=== PATIENT | female | born 1980 | race Caucasian/White ===

== ENCOUNTER 2018-05-04 23:56 | Observation (INO) | payer MEDICAID ==
[2018-05-05] MEDS ORDERED: Ondansetron 4 MG/2 ML SDV IVPUSH ONE (00:17)
--- NOTE | 2018-05-05 00:20 | EDM.PDOC ---
ED HPI GENERAL MEDICAL PROBLEM - General Chief Complaint: Diabetic Complaint Stated Complaint: LOW BLOOD SUGAR Time Seen by Provider: 05/05/18 00:17 Source of Information: Reports: Patient History Limitations: Reports: No Limitations - History of Present Illness INITIAL COMMENTS - FREE TEXT/NARRATIVE: pt has shaking chills and she thought she was having a insulin reaction Onset: Today, Sudden, Other (pt worked all day and felt fine. She came home and was lying on the couch about 10 pm and developed the chills. She was nauseated and has vomited several times. She developed shaking chills. ) Duration: Hour(s):, Getting Worse Associated Symptoms: Reports: Diaphoresis, Fever/Chills, Nausea/Vomiting Generalized Pain Score (Numeric/FACES): 5 - Related Data Allergies Allergy/AdvReac Type Severity Reaction Status Date / Time amoxicillin Allergy Anaphylactic Verified 05/05/18 00:14 Shock ampicillin Allergy Anaphylactic Verified 05/05/18 00:14 Shock Penicillins Allergy Anaphylactic Verified 05/05/18 00:14 Shock Home Meds: Home Meds Levonorgestrel-Ethin Estradiol [Altavera-28 Tablet] 1 tab PO DAILY 05/05/18 [ History] metFORMIN [Glucophage] 1,000 mg PO BID 05/05/18 [History] ED ROS GENERAL - Review of Systems Review Of Systems: See Below Constitutional: Reports: Fever, Chills, Malaise HEENT: Reports: No Symptoms Respiratory: Reports: No Symptoms Cardiovascular: Reports: No Symptoms Endocrine: Reports: No Symptoms GI/Abdominal: Reports: Nausea, Vomiting Musculoskeletal: Reports: No Symptoms Skin: Reports: No Symptoms Neurological: Reports: No Symptoms Psychiatric: Reports: No Symptoms ED EXAM GENERAL NO PERIP PULSE - Physical Exam Exam: See Below Text/Narrative:: pt developed a sudden onset of shaking chills. At first she thought she was having a low bs. She had just taken her metformin, Exam Limited By: No Limitations General Appearance: Alert Ears: Normal TMs Nose: Normal Inspection Throat/Mouth: Normal Inspection Head: Atraumatic Neck: Normal Inspection Respiratory/Chest: No Respiratory Distress Cardiovascular: Regular Rate, Rhythm GI/Abdominal: Soft, Non-Tender (Female) Exam: Deferred Rectal (Female) Exam: Deferred Back Exam: Normal Inspection Extremities: Normal Inspection Neurological: Alert, Oriented, Normal Cognition Psychiatric: Normal Affect, Anxious Course - Vital Signs Last Recorded V/S: Last Vital Signs Temp 38.7 C H 05/05/18 01:51 Pulse 105 H 05/05/18 01:07 Resp 20 05/05/18 01:07 BP 118/59 L 05/05/18 00:45 Pulse Ox 98 05/05/18 01:07 - Orders/Labs/Meds Orders: Active Orders 24 hr Category Date Time Status Chest 2V [CR] Stat Exams 05/05/18 00:48 Taken BABESIA MICROTI ANTIBODY PANEL Stat Lab 05/05/18 01:51 Received CULTURE BLOOD [BC] Urgent Lab 05/05/18 00:10 Received CULTURE BLOOD [BC] Urgent Lab 05/05/18 00:19 Received HUMAN GRANULOCYTIC LISA-HGE Stat Lab 05/05/18 01:51 Received LYME, TOTAL AB TEST/REFLEX Stat Lab 05/05/18 01:51 Received UA W/MICROSCOPIC [URIN] Urgent Lab 05/05/18 00:59 Ordered Doxycycline [Vibramycin] 100 mg Med 05/05/18 01:08 Active Sodium Chloride 0.9% [Normal Saline] 100 ml IV ONETIME Potassium Chloride [KCL 20 MEQ in Water 100 ML] 20 meq Med 05/05/18 01:03 Active Premix Bag 1 bag IV ONETIME Sodium Chloride 0.9% [Normal Saline] 1,000 ml Med 05/05/18 00:30 Active IV ASDIRECTED Sodium Chloride 0.9% [Normal Saline] 1,000 ml Med 05/05/18 01:00 Active IV ASDIRECTED Blood Culture x2 Reflex Set [OM.PC] Urgent Oth 05/05/18 00:06 Ordered Medication Orders Sodium Chloride (Normal Saline) 1,000 mls @ 999 mls/hr IV ASDIRECTED [facility] Last Admin: 05/05/18 00:25 Dose: 999 mls/hr Sodium Chloride (Normal Saline) 1,000 mls @ 999 mls/hr IV ASDIRECTED [facility] Last Admin: 05/05/18 01:50 Dose: 999 mls/hr Potassium Chloride 20 meq/ (Premix) 100 mls @ 50 mls/hr IV ONETIME ONE Stop: 05/05/18 03:02 Doxycycline Hyclate 100 mg/ (Sodium Chloride) 100 mls @ 100 mls/hr IV ONETIME ONE Stop: 05/05/18 02:07 Last Admin: 05/05/18 01:32 Dose: 100 mls/hr Labs: Laboratory Tests 05/05/18 05/05/18 05/05/18 Range/Units 00:03 00:03 00:03 WBC 3.1 L (4.5-11.0) K/uL RBC 4.97 (3.30-5.50) M/uL Hgb 13.2 (12.0-15.0) g/dL Hct 39.6 (36.0-48.0) % MCV 80 (80-98) fL MCH 27 (27-31) pg MCHC 33 (32-36) % Plt Count 233 (150-400) K/uL Neut % (Auto) 78 H (36-66) % Lymph % (Auto) 21 L (24-44) % [place] % (Auto) 1 L (2-6) % Eos % (Auto) 0 L (2-4) % Baso % (Auto) 0 (0-1) % Sodium 140 (140-148) mmol/L Potassium 3.1 L (3.6-5.2) mmol/L Chloride 103 (100-108) mmol/L Carbon Dioxide 23 (21-32) mmol/L Anion Gap 17.1 H (5.0-14.0) mmol/L BUN 12 (7-18) mg/dL Creatinine 1.1 H (0.6-1.0) mg/dL Est Cr Clr Drug Dosing 63.01 mL/min Estimated GFR (MDRD) 56 L (>60) Glucose 119 H (74-106) mg/dL Lactic Acid 3.9 H (0.4-2.0) mmol/L Calcium 8.6 (8.5-10.1) mg/dL Total Bilirubin 0.4 (0.2-1.0) mg/dL AST 28 (15-37) U/L ALT 58 (12-78) U/L Alkaline Phosphatase 82 (46-116) U/L Total Protein 6.5 (6.4-8.2) g/dL Albumin 3.5 (3.4-5.0) g/dL Globulin 3.0 (2.3-3.5) g/dL Albumin/Globulin Ratio 1.2 (1.2-2.2) Urine Color Urine Appearance Urine pH (4.5-8.0) Ur Specific [place] (1.008-1.030) Urine Protein (NEGATIVE) mg/dL Urine Glucose (UA) (NEGATIVE) mg/dL Urine Ketones (NEGATIVE) mg/dL Urine Occult Blood (NEGATIVE) Urine Nitrite (NEGATIVE) Urine Bilirubin (NEGATIVE) Urine Urobilinogen (NORMAL) mg/dL Ur Leukocyte Esterase (NEGATIVE) Urine RBC (0-5) Urine WBC (0-5) Ur Epithelial Cells Amorphous Sediment Urine Bacteria Urine Mucus 05/05/18 Range/Units 00:59 WBC (4.5-11.0) K/uL RBC (3.30-5.50) M/uL Hgb (12.0-15.0) g/dL Hct (36.0-48.0) % MCV (80-98) fL MCH (27-31) pg MCHC (32-36) % Plt Count (150-400) K/uL Neut % (Auto) (36-66) % Lymph % (Auto) (24-44) % [place] % (Auto) (2-6) % Eos % (Auto) (2-4) % Baso % (Auto) (0-1) % Sodium (140-148) mmol/L Potassium (3.6-5.2) mmol/L Chloride (100-108) mmol/L Carbon Dioxide (21-32) mmol/L Anion Gap (5.0-14.0) mmol/L BUN (7-18) mg/dL Creatinine (0.6-1.0) mg/dL Est Cr Clr Drug Dosing mL/min Estimated GFR (MDRD) (>60) Glucose (74-106) mg/dL Lactic Acid (0.4-2.0) mmol/L Calcium (8.5-10.1) mg/dL Total Bilirubin (0.2-1.0) mg/dL AST (15-37) U/L ALT (12-78) U/L Alkaline Phosphatase (46-116) U/L Total Protein (6.4-8.2) g/dL Albumin (3.4-5.0) g/dL Globulin (2.3-3.5) g/dL Albumin/Globulin Ratio (1.2-2.2) Urine Color Yellow Urine Appearance Clear Urine pH 5.0 (4.5-8.0) Ur Specific [place] 1.010 (1.008-1.030) Urine Protein Negative (NEGATIVE) mg/dL Urine Glucose (UA) Normal (NEGATIVE) mg/dL Urine Ketones Negative (NEGATIVE) mg/dL Urine Occult Blood Moderate (NEGATIVE) Urine Nitrite Negative (NEGATIVE) Urine Bilirubin Negative (NEGATIVE) Urine Urobilinogen Normal (NORMAL) mg/dL Ur Leukocyte Esterase Negative (NEGATIVE) Urine RBC 0-5 (0-5) Urine WBC Not seen (0-5) Ur Epithelial Cells Not seen Amorphous Sediment Not seen Urine Bacteria Not seen Urine Mucus Not seen Meds: Medications Generic Name Dose Route Start Last Admin Trade Name Freq PRN Reason Stop Dose Admin Sodium Chloride 1,000 mls @ 999 mls/hr 05/05/18 00:30 05/05/18 00:25 Normal Saline IV 999 mls/hr ASDIRECTED SUMANTH Administration Sodium Chloride 1,000 mls @ 999 mls/hr 05/05/18 01:00 05/05/18 01:50 Normal Saline IV 999 mls/hr ASDIRECTED SUMANTH Administration Potassium Chloride 20 meq/ 100 mls @ 50 mls/hr 05/05/18 01:03 Premix IV 05/05/18 03:02 ONETIME ONE Doxycycline Hyclate 100 mg/ 100 mls @ 100 mls/hr 05/05/18 01:08 05/05/18 01: 32 Sodium Chloride IV 05/05/18 02:07 100 mls/hr ONETIME ONE Administration Discontinued Medications Generic Name Dose Route Start Last Admin Trade Name Freq PRN Reason Stop Dose Admin Acetaminophen 650 mg 05/05/18 00:44 05/05/18 01:14 Tylenol RECTAL 05/05/18 00:45 Not Given NOW ONE Acetaminophen 650 mg 05/05/18 01:56 Tylenol PO 05/05/18 01:57 NOW ONE Ondansetron HCl 4 mg 05/05/18 00:17 05/05/18 00:25 Zofran IVPUSH 05/05/18 00:18 4 mg ONETIME ONE Administration - Re-Assessments/Exams Free Text/Narrative Re-Assessment/Exam: 05/05/18 01:06 pt has a wbc of 3,100. Her platlets are normal. She has a elevated lactic acid. She has a k of 3.1. Her bs is 119. 05/05/18 01:59 pt was given 100mg of doxycline iv, Departure - Departure Time of Disposition: 02:00 Disposition: Home, Self-Care 01 Condition: Fair Clinical Impression: Anaplasmosis - Discharge Information Referrals: PCP,None [Primary Care Provider] - Forms: ED Department Discharge Care Plan Goals: admit to Dr Dennis. - My Orders Last 24 Hours: My Active Orders 05/05/18 00:06 Blood Culture x2 Reflex Set [OM.PC] Urgent 05/05/18 00:10 CULTURE BLOOD [BC] Urgent 05/05/18 00:19 CULTURE BLOOD [BC] Urgent 05/05/18 00:30 Sodium Chloride 0.9% [Normal Saline] 1,000 ml IV ASDIRECTED 05/05/18 00:48 Chest 2V [CR] Stat 05/05/18 00:59 UA W/MICROSCOPIC [URIN] Urgent 05/05/18 01:00 Sodium Chloride 0.9% [Normal Saline] 1,000 ml IV ASDIRECTED 05/05/18 01:03 Potassium Chloride [KCL 20 MEQ in Water 100 ML] 20 meq Premix Bag 1 bag IV ONETIME 05/05/18 01:08 Doxycycline [Vibramycin] 100 mg Sodium Chloride 0.9% [Normal Saline] 100 ml IV ONETIME 05/05/18 01:51 BABESIA MICROTI ANTIBODY PANEL Stat HUMAN GRANULOCYTIC LISA-HGE Stat LYME, TOTAL AB TEST/REFLEX Stat - Assessment/Plan Last 24 Hours: My Active Orders 05/05/18 00:06 Blood Culture x2 Reflex Set [OM.PC] Urgent 05/05/18 00:10 CULTURE BLOOD [BC] Urgent 05/05/18 00:19 CULTURE BLOOD [BC] Urgent 05/05/18 00:30 Sodium Chloride 0.9% [Normal Saline] 1,000 ml IV ASDIRECTED 05/05/18 00:48 Chest 2V [CR] Stat 05/05/18 00:59 UA W/MICROSCOPIC [URIN] Urgent 05/05/18 01:00 Sodium Chloride 0.9% [Normal Saline] 1,000 ml IV ASDIRECTED 05/05/18 01:03 Potassium Chloride [KCL 20 MEQ in Water 100 ML] 20 meq Premix Bag 1 bag IV ONETIME 05/05/18 01:08 Doxycycline [Vibramycin] 100 mg Sodium Chloride 0.9% [Normal Saline] 100 ml IV ONETIME 05/05/18 01:51 BABESIA MICROTI ANTIBODY PANEL Stat HUMAN GRANULOCYTIC LISA-HGE Stat LYME, TOTAL AB TEST/REFLEX Stat
[2018-05-05] MEDS ORDERED: Sodium Chloride 0.9% 1,000 ML IV SCH ×2 (00:30→01:00)
[2018-05-05] MEDS ORDERED: Potassium Chloride 20 MEQ in Premix Bag 1 BAG IV ONE (01:03)
[2018-05-05] MEDS ORDERED: Doxycycline 100 MG in Sodium Chloride 0.9% 100 ML IV ONE (01:08)
[2018-05-05] MEDS: Acetaminophen 650 MG Supp RECTAL ONE ×2 (01:12→01:14)
[2018-05-05] MEDS ORDERED: Acetaminophen 325 MG Tab PO ONE (01:56)
--- NOTE | 2018-05-05 02:18 | PCM.HP ---
H&P History of Present Illness - General Date of Service: 05/05/18 Admit Problem/Dx: Admission Diagnosis/Problem Admission Diagnosis/Problem Human anaplasmosis Source of Information: Patient, Provider History Limitations: Reports: No Limitations - History of Present Illness Initial Comments - Free Text/Narative: Piper presents to the emergency room with shaking chills, mild hypoglycemia and vomiting. She reports that she felt perfectly fine all day today. Around 10 PM she sat down on the couch to relax after work and suddenly had shaking chills. Despite multiple blankets she was not able to calm the shaking chills down. She has had 3 episodes of vomiting since onset of the shaking chills. She felt flushed and warm along the way but did not measure any temperatures at home. She does not report muscle or joint aches outside of the ordinary. Appetite had been normal up until onset of symptoms. She does not have abdominal pain at this time. No diarrhea. She does report that she was camping several days ago but did not notice any tick bites at the time. No one else in the home has similar symptoms. Workup in the emergency room has revealed mild hypokalemia and mild leukopenia. She is febrile and mildly tachycardic. Lactic acid is elevated. Urine and chest x-rays are clear. Patient has received a dose of doxycycline and will be admitted for observation with presumed diagnosis of anaplasmosis. 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 - Infectious Disease History Infectious Disease History: Reports: Chicken Pox, Measles, Mumps - Past Surgical History Dermatological Surgical History: Reports: Other (See Below) Social & Family History - Family History Family Medical History: Noncontributory - Tobacco Use Smoking Status *Q: Never Smoker Second Hand Smoke Exposure: No - Caffeine Use Caffeine Use: Reports: Tea - Alcohol Use Days Per Week of Alcohol Use: 0 - Recreational Drug Use Recreational Drug Use: No H&P Review of Systems - Review of Systems: Review Of Systems: See Below Free Text/Narrative: A complete 12 point review of systems was obtained. Pertinent positives and negatives are noted in the history of present illness. All other systems were reviewed and were negative except as noted. Exam - Exam Exam: See Below - Vital Signs Vital Signs: Last Vital Signs Temp 38.7 C H 05/05/18 02:13 Pulse 105 H 05/05/18 01:07 Resp 20 05/05/18 01:07 BP 118/59 L 05/05/18 00:45 Pulse Ox 98 05/05/18 01:07 Weight: 117.934 kg - Exam Quality Assessment: No: Supplemental Oxygen General: Alert, Oriented, Cooperative, Mild Distress HEENT: Conjunctiva Clear, Mucosa Moist & [place]. No: Scleral Icterus Neck: Supple, Trachea Midline. No: Lymphadenopathy, Thyromegaly Lungs: Clear to Auscultation, Normal Respiratory Effort Cardiovascular: Regular Rhythm, Tachycardia GI/Abdominal Exam: Normal Bowel Sounds, Soft, Non-Tender, No Distention Extremities: No Pedal Edema. No: Increased Warmth Peripheral Pulses: 2+: Dorsalis Pedis (L), Dorsalis Pedis (R) Skin: Warm, Dry, Other (flushed) Neuro Extensive - Mental Status: Alert, Oriented x3, Nl Response to Commands Neuro Extensive - Motor, Sensory, Reflexes: CN II-XII Intact. No: Dysarthria, Abnormal Motor, Tremor Psychiatric: Alert, Normal Affect - Patient Data Lab Results Last 24 hrs: Laboratory Results - last 24 hr 05/05/18 05/05/18 05/05/18 Range/Units 00:03 00:03 00:03 WBC 3.1 L (4.5-11.0) K/uL RBC 4.97 (3.30-5.50) M/uL Hgb 13.2 (12.0-15.0) g/dL Hct 39.6 (36.0-48.0) % MCV 80 (80-98) fL MCH 27 (27-31) pg MCHC 33 (32-36) % Plt Count 233 (150-400) K/uL Neut % (Auto) 78 H (36-66) % Lymph % (Auto) 21 L (24-44) % [place] % (Auto) 1 L (2-6) % Eos % (Auto) 0 L (2-4) % Baso % (Auto) 0 (0-1) % Sodium 140 (140-148) mmol/L Potassium 3.1 L (3.6-5.2) mmol/L Chloride 103 (100-108) mmol/L Carbon Dioxide 23 (21-32) mmol/L Anion Gap 17.1 H (5.0-14.0) mmol/L BUN 12 (7-18) mg/dL Creatinine 1.1 H (0.6-1.0) mg/dL Est Cr Clr Drug Dosing 63.01 mL/min Estimated GFR (MDRD) 56 L (>60) Glucose 119 H (74-106) mg/dL Lactic Acid 3.9 H (0.4-2.0) mmol/L Calcium 8.6 (8.5-10.1) mg/dL Total Bilirubin 0.4 (0.2-1.0) mg/dL AST 28 (15-37) U/L ALT 58 (12-78) U/L Alkaline Phosphatase 82 (46-116) U/L Total Protein 6.5 (6.4-8.2) g/dL Albumin 3.5 (3.4-5.0) g/dL Globulin 3.0 (2.3-3.5) g/dL Albumin/Globulin Ratio 1.2 (1.2-2.2) Urine Color Urine Appearance Urine pH (4.5-8.0) Ur Specific [place] (1.008-1.030) Urine Protein (NEGATIVE) mg/dL Urine Glucose (UA) (NEGATIVE) mg/dL Urine Ketones (NEGATIVE) mg/dL Urine Occult Blood (NEGATIVE) Urine Nitrite (NEGATIVE) Urine Bilirubin (NEGATIVE) Urine Urobilinogen (NORMAL) mg/dL Ur Leukocyte Esterase (NEGATIVE) Urine RBC (0-5) Urine WBC (0-5) Ur Epithelial Cells Amorphous Sediment Urine Bacteria Urine Mucus 08/19/18 Range/Units 00:59 WBC (4.5-11.0) K/uL RBC (3.30-5.50) M/uL Hgb (12.0-15.0) g/dL Hct (36.0-48.0) % MCV (80-98) fL MCH (27-31) pg MCHC (32-36) % Plt Count (150-400) K/uL Neut % (Auto) (36-66) % Lymph % (Auto) (24-44) % [place] % (Auto) (2-6) % Eos % (Auto) (2-4) % Baso % (Auto) (0-1) % Sodium (140-148) mmol/L Potassium (3.6-5.2) mmol/L Chloride (100-108) mmol/L Carbon Dioxide (21-32) mmol/L Anion Gap (5.0-14.0) mmol/L BUN (7-18) mg/dL Creatinine (0.6-1.0) mg/dL Est Cr Clr Drug Dosing mL/min Estimated GFR (MDRD) (>60) Glucose (74-106) mg/dL Lactic Acid (0.4-2.0) mmol/L Calcium (8.5-10.1) mg/dL Total Bilirubin (0.2-1.0) mg/dL AST (15-37) U/L ALT (12-78) U/L Alkaline Phosphatase (46-116) U/L Total Protein (6.4-8.2) g/dL Albumin (3.4-5.0) g/dL Globulin (2.3-3.5) g/dL Albumin/Globulin Ratio (1.2-2.2) Urine Color Yellow Urine Appearance Clear Urine pH 5.0 (4.5-8.0) Ur Specific [place] 1.010 (1.008-1.030) Urine Protein Negative (NEGATIVE) mg/dL Urine Glucose (UA) Normal (NEGATIVE) mg/dL Urine Ketones Negative (NEGATIVE) mg/dL Urine Occult Blood Moderate (NEGATIVE) Urine Nitrite Negative (NEGATIVE) Urine Bilirubin Negative (NEGATIVE) Urine Urobilinogen Normal (NORMAL) mg/dL Ur Leukocyte Esterase Negative (NEGATIVE) Urine RBC 0-5 (0-5) Urine WBC Not seen (0-5) Ur Epithelial Cells Not seen Amorphous Sediment Not seen Urine Bacteria Not seen Urine Mucus Not seen Result Diagrams: 05/05/18 00:03 05/05/18 00:03 Imaging Impressions Last 24 hrs: CXR - images personally reviewed - lungs are clear with no mass, effusion, infiltrate or chf. Heart size is normal. *Q Meaningful Use (ADM) - VTE Risk Assess *Q Each Risk Factor Represents 1 Point: Obesity ( BMI > 25 kg/m2) Total Score 1 Point Risk Factors: 1 Each Risk Factor Represents 2 Points: None Total Score 2 Point Risk Factors: 0 Each Risk Factor Represents 3 Points: None Total Score 3 Point Risk Factors: 0 Each Risk Factor Represents 5 Points: None Total Score 5 Point Risk Factors: 0 Venous Thromboembolism Risk Factor Score *Q: 1 - Problem List (1) Anaplasmosis SNOMED Code(s): 295327450 ICD Code: A77.49 - OTHER EHRLICHIOSIS Status: Acute Current Visit: Yes (2) Type II diabetes mellitus SNOMED Code(s): 02069667 ICD Code: E11.9 - TYPE 2 DIABETES MELLITUS WITHOUT COMPLICATIONS Status: Chronic Current Visit: Yes Qualifiers: Diabetes mellitus jail insulin use: without termite helper use Diabetes mellitus complication status: without complication Qualified Code(s): E11.9 - Type 2 diabetes mellitus without complications Problem List Initiated/Reviewed/Updated: Yes Orders Last 24hrs: Active Orders 24 hr Category Date Time Status Patient Status Manage Transfer [TRANSFER] Routine ADT 05/05/18 02:09 Active Chest 2V [CR] Stat Exams 05/05/18 00:48 Taken BABESIA MICROTI ANTIBODY PANEL Stat Lab 05/05/18 01:51 Received CULTURE BLOOD [BC] Urgent Lab 05/05/18 00:10 Received CULTURE BLOOD [BC] Urgent Lab 05/05/18 00:19 Received HUMAN GRANULOCYTIC LISA-HGE Stat Lab 05/05/18 01:51 Received LYME, TOTAL AB TEST/REFLEX Stat Lab 05/05/18 01:51 Received UA W/MICROSCOPIC [URIN] Urgent Lab 05/05/18 00:59 Ordered Potassium Chloride [KCL 20 MEQ in Water 100 ML] 20 meq Med 05/05/18 01:03 Active Premix Bag 1 bag IV ONETIME Sodium Chloride 0.9% [Normal Saline] 1,000 ml Med 05/05/18 00:30 Active IV ASDIRECTED Sodium Chloride 0.9% [Normal Saline] 1,000 ml Med 05/05/18 01:00 Active IV ASDIRECTED Blood Culture x2 Reflex Set [OM.PC] Urgent Oth 05/05/18 00:06 Ordered Resuscitation Status Routine Resus Stat 05/05/18 02:11 Ordered Medication Orders Sodium Chloride (Normal Saline) 1,000 mls @ 999 mls/hr IV ASDIRECTED [facility] Last Admin: 05/05/18 00:25 Dose: 999 mls/hr Sodium Chloride (Normal Saline) 1,000 mls @ 999 mls/hr IV ASDIRECTED [facility] Last Admin: 05/05/18 01:50 Dose: 999 mls/hr Potassium Chloride 20 meq/ (Premix) 100 mls @ 50 mls/hr IV ONETIME ONE Stop: 05/05/18 03:02 Assessment/Plan Comment:: ASSESSMENT AND PLAN - Anaplasmosis with sepsis - suspected source of infection as the tick bite with no other obvious source. Patient has potential for tick exposure and she does have leukopenia. Tick panel has been collected and will be sent to the reference lab. She has received a dose of doxycycline and some IV fluids and is feeling a little better. -Continue doxycycline -Additional IV fluids -Antipyretics -Repeat lactic acid level -Follow-up cultures Hypokalemia - Mild and will be supplemented at the time of admission. Plan to recheck in the morning. Diabetes mellitus type 2 - Recent diagnosis. She is on once daily metformin. -Continue metformin Maintenance issues - - DVT prophylaxis - patient will be ambulatory - GI prophylaxis - not indicated - Nutrition - regular diet - Evans catheter - not indicated CODE STATUS - Full code Admission justification - patient will be referred observation status for hydration, repeat lactic acid testing and additional treatment Disposition - I would anticipate discharge to home later today Primary care physician - Audrey Dennis M.D.
[2018-05-05] MEDS ORDERED: Ibuprofen 600 MG Tab PO PRN (02:51)
[2018-05-05] MEDS ORDERED: Acetaminophen 325 MG Tab PO PRN (02:51)
[2018-05-05] MEDS ORDERED: Ondansetron 4 MG/2 ML SDV IV PRN (02:51)
[2018-05-05] MEDS ORDERED: Ondansetron 4 MG Tab.DIS PO PRN (02:51)
[2018-05-05] MEDS ORDERED: Potassium Chloride 20 MEQ, Lidocaine 1% 2 ML in Sodium Chloride 0.9% 100 ML IV SCH (02:51)
[2018-05-05] MEDS: Sodium Chloride 0.9% 1,000 ML IV SCH ×2 (03:36→11:27)
[2018-05-05] MEDS ORDERED: LEVONORGESTREL PO SCH (09:00)
[2018-05-05] MEDS ORDERED: ETHINYL ESTRADIOL PO SCH (09:00)
[2018-05-05] MEDS ORDERED: LEVONORGESTREL ETHIN ESTRADIOL PO SCH (09:00)
[2018-05-05] MEDS ORDERED: Potassium Chloride 20 MEQ Tab.ER PO ONE (09:00)
[2018-05-05] MEDS ORDERED: metFORMIN 500 MG Tab PO SCH (09:00)
[2018-05-05] MEDS ORDERED: Doxycycline 100 MG in Sodium Chloride 0.9% 100 ML IV SCH (12:00)
--- NOTE | 2018-05-05 13:56 | PCM.DCSUM1 ---
Discharge Summary - Hospital Course Brief History: 38-year-old female with history of controlled type 2 diabetes mellitus who presented with shaking chills and was found to have fever and leukocytosis. 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 Diagnosis: Stroke: No - Discharge Data Discharge Date: 05/05/18 Discharge Disposition: Home, Self-Care 01 Condition: Good - Discharge Diagnosis/Problem(s) (1) Anaplasmosis SNOMED Code(s): 791007486 ICD Code: A77.49 - OTHER EHRLICHIOSIS Status: Acute Current Visit: Yes (2) Type II diabetes mellitus SNOMED Code(s): 23502178 ICD Code: E11.9 - TYPE 2 DIABETES MELLITUS WITHOUT COMPLICATIONS Status: Chronic Current Visit: Yes Qualifiers: Diabetes mellitus residential insulin use: without parts counterman use Diabetes mellitus complication status: without complication Qualified Code(s): E11.9 - Type 2 diabetes mellitus without complications - Patient Summary/Data Labs Pending at D/C: final results of blood cultures which are negative at the time of discharge Blood test looking for anaplasmosis, babesiosis and Lyme disease have been sent to the reference lab and are pending Hospital Course: Piper presented to the emergency room with shaking chills and mildly decreased blood sugar. Workup in the emergency room revealed leukopenia and a high fever as well as tachycardia and elevated lactic acid level. She was started on doxycycline with presumed diagnosis of anaplasmosis. She is admitted to the hospital for observation. With the administration of IV fluids her temperature and heart rate both improved. she has been afebrile since the time of her admission. Symptomatically she is feeling better with improved energy. She does have a mild residual headache but otherwise feels well. She has not had any additional vomiting since prior to admission. She has been tolerating food. She has received 2 doses of IV doxycycline that feels well enough for discharge home at this time. She will be on a total of 3 weeks of antibiotics. We did discuss potential side effects including increased skin sensitivity to the son as well as stomach upset. She will follow-up if symptoms do not continue to get better or if they get worse. - Patient Instructions Diet: Diabetic Diet Activity: As Tolerated Driving: May Drive Today Showering/Bathing: May Shower Notify Provider of: Fever, Increased Pain, Nausea and/or Vomiting Other/Special Instructions: 1. You were in the hospital for management of suspected anaplasmosis. Confirmatory blood testing has been sent to a reference lab and will not return for several days. I would recommend that you complete a total of 21 days of antibiotic therapy with doxycycline. Your next dose is due tonight and you should take the medication every 12 hours with food. Given the usual nature of this infection you may have mild temperature elevations over the next couple of days but they should be trending down and should resolve within 2-3 days. 2. Continue your usual home medications as previously prescribed. 3. Please seek medical attention if you develop fever greater than 101, you have severe muscle aches, severe headache or persistent vomiting or diarrhea. - Discharge Plan *PRESCRIPTION DRUG MONITORING PROGRAM REVIEWED*: Not Applicable *COPY OF PRESCRIPTION DRUG MONITORING REPORT IN PATIENT RAHUL: Not Applicable Prescriptions/Med Rec: Doxycycline Hyclate 100 mg PO BID #40 capsule Home Medications: Home Meds Doxycycline Hyclate 100 mg PO BID #40 capsule 05/05/18 [Rx] Levonorgestrel-Ethin Estradiol [Altavera-28 Tablet] 1 tab PO DAILY 05/05/18 [ History] metFORMIN [Glucophage] 1,000 mg PO BID 05/05/18 [History] Patient Handouts: Ehrlichiosis and Anaplasmosis, Doxycycline tablets or capsules Referrals: PCP,None [Primary Care Provider] - (follow-up if your symptoms do not continue to get better or if they get worse) - Discharge Summary/Plan Comment DC Time >30 min.: No - Patient Data Vitals - Most Recent: Last Vital Signs Temp 37.4 C 05/05/18 12:47 Pulse 91 05/05/18 12:47 Resp 16 05/05/18 12:47 BP 105/50 L 05/05/18 12:50 Pulse Ox 97 05/05/18 12:47 Weight - Most Recent: 120.111 kg I&O - Last 24 hours: Intake & Output 05/04/18 05/05/18 05/05/18 22:59 06:59 14:59 Intake Total 100 700 Output Total 850 Balance 100 -150 Lab Results - Last 24 hrs: Laboratory Results - last 24 hr 05/05/18 05/05/18 05/05/18 Range/Units 00:03 00:03 00:03 WBC 3.1 L (4.5-11.0) K/uL RBC 4.97 (3.30-5.50) M/uL Hgb 13.2 (12.0-15.0) g/dL Hct 39.6 (36.0-48.0) % MCV 80 (80-98) fL MCH 27 (27-31) pg MCHC 33 (32-36) % Plt Count 233 (150-400) K/uL Neut % (Auto) 78 H (36-66) % Lymph % (Auto) 21 L (24-44) % [place] % (Auto) 1 L (2-6) % Eos % (Auto) 0 L (2-4) % Baso % (Auto) 0 (0-1) % Sodium 140 (140-148) mmol/L Potassium 3.1 L (3.6-5.2) mmol/L Chloride 103 (100-108) mmol/L Carbon Dioxide 23 (21-32) mmol/L Anion Gap 17.1 H (5.0-14.0) mmol/L BUN 12 (7-18) mg/dL Creatinine 1.1 H (0.6-1.0) mg/dL Est Cr Clr Drug Dosing 63.01 mL/min Estimated GFR (MDRD) 56 L (>60) Glucose 119 H (74-106) mg/dL Lactic Acid 3.9 H (0.4-2.0) mmol/L Calcium 8.6 (8.5-10.1) mg/dL Total Bilirubin 0.4 (0.2-1.0) mg/dL AST 28 (15-37) U/L ALT 58 (12-78) U/L Alkaline Phosphatase 82 (46-116) U/L Total Protein 6.5 (6.4-8.2) g/dL Albumin 3.5 (3.4-5.0) g/dL Globulin 3.0 (2.3-3.5) g/dL Albumin/Globulin Ratio 1.2 (1.2-2.2) Urine Color Urine Appearance Urine pH (4.5-8.0) Ur Specific [place] (1.008-1.030) Urine Protein (NEGATIVE) mg/dL Urine Glucose (UA) (NEGATIVE) mg/dL Urine Ketones (NEGATIVE) mg/dL Urine Occult Blood (NEGATIVE) Urine Nitrite (NEGATIVE) Urine Bilirubin (NEGATIVE) Urine Urobilinogen (NORMAL) mg/dL Ur Leukocyte Esterase (NEGATIVE) Urine RBC (0-5) Urine WBC (0-5) Ur Epithelial Cells Amorphous Sediment Urine Bacteria Urine Mucus 05/05/18 05/05/18 05/05/18 Range/Units 00:59 06:03 07:49 WBC 17.1 H (4.5-11.0) K/uL RBC 4.50 (3.30-5.50) M/uL Hgb 11.9 L (12.0-15.0) g/dL Hct 35.9 L (36.0-48.0) % MCV 80 (80-98) fL MCH 26 L (27-31) pg MCHC 33 (32-36) % Plt Count 204 (150-400) K/uL Neut % (Auto) (36-66) % Lymph % (Auto) (24-44) % [place] % (Auto) (2-6) % Eos % (Auto) (2-4) % Baso % (Auto) (0-1) % Sodium (140-148) mmol/L Potassium (3.6-5.2) mmol/L Chloride (100-108) mmol/L Carbon Dioxide (21-32) mmol/L Anion Gap (5.0-14.0) mmol/L BUN (7-18) mg/dL Creatinine (0.6-1.0) mg/dL Est Cr Clr Drug Dosing mL/min Estimated GFR (MDRD) (>60) Glucose (74-106) mg/dL Lactic Acid 2.2 H (0.4-2.0) mmol/L Calcium (8.5-10.1) mg/dL Total Bilirubin (0.2-1.0) mg/dL AST (15-37) U/L ALT (12-78) U/L Alkaline Phosphatase (46-116) U/L Total Protein (6.4-8.2) g/dL Albumin (3.4-5.0) g/dL Globulin (2.3-3.5) g/dL Albumin/Globulin Ratio (1.2-2.2) Urine Color Yellow Urine Appearance Clear Urine pH 5.0 (4.5-8.0) Ur Specific [place] 1.010 (1.008-1.030) Urine Protein Negative (NEGATIVE) mg/dL Urine Glucose (UA) Normal (NEGATIVE) mg/dL Urine Ketones Negative (NEGATIVE) mg/dL Urine Occult Blood Moderate (NEGATIVE) Urine Nitrite Negative (NEGATIVE) Urine Bilirubin Negative (NEGATIVE) Urine Urobilinogen Normal (NORMAL) mg/dL Ur Leukocyte Esterase Negative (NEGATIVE) Urine RBC 0-5 (0-5) Urine WBC Not seen (0-5) Ur Epithelial Cells Not seen Amorphous Sediment Not seen Urine Bacteria Not seen Urine Mucus Not seen 05/05/18 Range/Units 07:49 WBC (4.5-11.0) K/uL RBC (3.30-5.50) M/uL Hgb (12.0-15.0) g/dL Hct (36.0-48.0) % MCV (80-98) fL MCH (27-31) pg MCHC (32-36) % Plt Count (150-400) K/uL Neut % (Auto) (36-66) % Lymph % (Auto) (24-44) % [place] % (Auto) (2-6) % Eos % (Auto) (2-4) % Baso % (Auto) (0-1) % Sodium 139 L (140-148) mmol/L Potassium 3.5 L (3.6-5.2) mmol/L Chloride 106 (100-108) mmol/L Carbon Dioxide 23 (21-32) mmol/L Anion Gap 13.5 (5.0-14.0) mmol/L BUN 9 (7-18) mg/dL Creatinine 1.1 H (0.6-1.0) mg/dL Est Cr Clr Drug Dosing 63.01 mL/min Estimated GFR (MDRD) 56 L (>60) Glucose 156 H (74-106) mg/dL Lactic Acid (0.4-2.0) mmol/L Calcium 7.8 L (8.5-10.1) mg/dL Total Bilirubin (0.2-1.0) mg/dL AST (15-37) U/L ALT (12-78) U/L Alkaline Phosphatase (46-116) U/L Total Protein (6.4-8.2) g/dL Albumin (3.4-5.0) g/dL Globulin (2.3-3.5) g/dL Albumin/Globulin Ratio (1.2-2.2) Urine Color Urine Appearance Urine pH (4.5-8.0) Ur Specific [place] (1.008-1.030) Urine Protein (NEGATIVE) mg/dL Urine Glucose (UA) (NEGATIVE) mg/dL Urine Ketones (NEGATIVE) mg/dL Urine Occult Blood (NEGATIVE) Urine Nitrite (NEGATIVE) Urine Bilirubin (NEGATIVE) Urine Urobilinogen (NORMAL) mg/dL Ur Leukocyte Esterase (NEGATIVE) Urine RBC (0-5) Urine WBC (0-5) Ur Epithelial Cells Amorphous Sediment Urine Bacteria Urine Mucus Med Orders - Current: Current Medications Acetaminophen (Tylenol) 650 mg PO Q4H PRN PRN Reason: Pain (Mild 1-3)/fever Last Admin: 05/05/18 10:25 Dose: 650 mg Doxycycline Hyclate 100 mg/ (Sodium Chloride) 100 mls @ 100 mls/hr IV Q12H [facility] Last Admin: 05/05/18 12:02 Dose: 100 mls/hr Sodium Chloride (Normal Saline) 1,000 mls @ 125 [facility]ls[facility] Last Admin: 05/05/18 11:27 Dose: 125 mls/hr Ibuprofen (Motrin) 600 mg PO Q6H PRN PRN Reason: Pain/Fever Metformin HCl (Glucophage) 1,000 mg PO BID [facility] Last Admin: 05/05/18 10:25 Dose: 1,000 mg Ondansetron HCl (Zofran Odt) 4 mg PO Q6H PRN PRN Reason: Nausea able to take PO Ondansetron HCl (Zofran) 4 mg IV Q6H PRN PRN Reason: Nausea/Vomiting Altavera-28 Pack ( (Ptom)) 1 each PO DAILY [facility] Last Admin: 05/05/18 08:39 Dose: Not Given Discontinued Medications Acetaminophen (Tylenol) 650 mg RECTAL NOW ONE Stop: 05/05/18 00:45 Last Admin: 05/05/18 01:14 Dose: Not Given Acetaminophen (Tylenol) 650 mg PO NOW ONE Stop: 05/05/18 01:57 Last Admin: 05/05/18 02:13 Dose: 650 mg Sodium Chloride (Normal Saline) 1,000 mls @ 999 mls[facility]hr [facility] Last Admin: 05/05/18 00:25 Dose: 999 mls/hr Sodium Chloride (Normal Saline) 1,000 mls [facility] Last Admin: 05/05/18 01:50 Dose: 999 mls/hr Potassium Chloride 20 meq/ (Premix) 100 mls @ 50 mls/hr IV ONETIME ONE Stop: 05/05/18 03:02 Last Admin: 05/05/18 03:18 Dose: Not Given Doxycycline Hyclate 100 mg/ (Sodium Chloride) 100 mls @ 100 mls/hr IV ONETIME ONE Stop: 05/05/18 02:07 Last Admin: 05/05/18 01:32 Dose: 100 mls/hr Potassium Chloride 20 meq/Lidocaine HCl 2 ml/ Sodium Chloride 112 mls @ 50 mls/ hr IV Q2H [facility] Stop: 05/05/18 04:50 Last Admin: 05/05/18 03:35 Dose: 50 mls/hr Lidocaine HCl (Xylocaine-Mpf 1%) 5 ml INJECT ONETIME ONE Stop: 05/05/18 02:19 Last Admin: 05/05/18 03:33 Dose: 5 ml Ondansetron HCl (Zofran) 4 mg IVPUSH ONETIME ONE Stop: 05/05/18 00:18 Last Admin: 05/05/18 00:25 Dose: 4 mg Potassium Chloride (Klor-Con M20) 40 meq PO ONETIME ONE Stop: 05/05/18 09:01 Last Admin: 05/05/18 10:24 Dose: 40 meq - Exam Quality Assessment: Denies: Supplemental Oxygen General: Reports: Alert, Oriented, Cooperative, No Acute Distress Lungs: Reports: Normal Respiratory Effort Cardiovascular: Reports: Regular Rate, Regular Rhythm GI/Abdominal Exam: No Distention Extremities: No Pedal Edema Psy/Mental Status: Reports: Alert, Normal Affect
--- NOTE | 2018-05-06 10:12 | CR ---
CHEST: 2 view CLINICAL HISTORY:Fever, chills COMPARISON:None FINDINGS: Heart size and pulmonary vascular normal. Lung green are clear. There is no effusion.. IMPRESSION: No acute cardiopulmonary process
[2018-05-08 11:13] LABS: LYME IGG/IGM AB <0.91 ISR (0.00-0.90)
[2018-05-08 14:12] LABS: HGE IGG TITER Negative (Neg:<1:64); HGE IGM TITER Negative (Neg:<1:20)
[2018-05-08 18:08] LABS: BABESIA MICROTI IGG <1:10 (Neg:<1:10); BABESIA MICROTI IGM <1:10 (Neg:<1:10)
== END 2018-05-05 14:36 | disposition home or self-care (01) ==
LOC: JP.ED 23:56 → JP.MS 05-05 02:09
PROVIDERS: ADMIT Internal Medicine; ATTEND Internal Medicine
DX: A77.49 Other ehrlichiosis (principal); E11.9 Type 2 diabetes mellitus without complications; E87.6 Hypokalemia; D72.819 Decreased white blood cell count, unspecified; Z88.0 Allergy status to penicillin; Z79.84 Long term (current) use of oral hypoglycemic drugs; Z79.899 Other long term (current) drug therapy
CPT/HCPCS: 36415; 71046; 80048; 80053; 81001; 82962; 83605; 85025; 85027; 86618; 86666; 86753; 87040; 96361; 96365; 96375; 99285; A9270; J2405; J3480; J3490; J7030; 96366; 96367; G0378

== ENCOUNTER 2018-11-15 18:48 | Emergency (ER) | payer MEDICAID ==
--- NOTE | 2018-11-15 19:32 | EDM.PDOC ---
ED HPI GENERAL MEDICAL PROBLEM - General Chief Complaint: General Stated Complaint: SOB COUGHING Time Seen by Provider: 11/15/18 19:09 Source of Information: Reports: Patient History Limitations: Reports: No Limitations - History of Present Illness INITIAL COMMENTS - FREE TEXT/NARRATIVE: chief complaint: sinus infection, terrible cough, now feels like has a fever. she is worried because is going on vacation on Sunday and can't be sick. Onset: Gradual Duration: Day(s): (2), Getting Worse Location: Reports: Face, Chest Severity: Moderate Improves with: Reports: None Worsens with: Reports: None Associated Symptoms: Reports: Cough Treatments SILVER MINER BLASTING: Reports: Acetaminophen, Cold Therapy chest pain Pain Score (Numeric/FACES): 5 - Related Data Allergies Allergy/AdvReac Type Severity Reaction Status Date / Time amoxicillin Allergy Severe Anaphylactic Verified 11/15/18 19:05 Shock ampicillin Allergy Severe Anaphylactic Verified 11/15/18 19:05 Shock Penicillins Allergy Severe Anaphylactic Verified 11/15/18 19:05 Shock Home Meds: Home Meds metFORMIN [Glucophage] 1,000 mg PO BID 05/05/18 [History] Past Medical History HEENT History: Reports: Impaired Vision [employer]OUND [employer] MECH[employer]IC History: Reports: , Spontaneous Musculoskeletal History: Reports: Fracture Other Musculoskeletal History: Fx arms, legs, fingers as youth Endocrine/Metabolic History: Reports: Diabetes, Type II, Obesity/BMI 30+, Other (See Below) Other Endocrine/Metabolic History: Diagnosed in Sep Tpye 2 diabetic. - Infectious Disease History Infectious Disease History: Reports: Chicken Pox, Measles, Mumps - Past Surgical History Dermatological Surgical History: Reports: Other (See Below) Social & Family History - Family History Family Medical History: Noncontributory - Tobacco Use Smoking Status *Q: Never Smoker - Caffeine Use Caffeine Use: Reports: Tea - Recreational Drug Use Recreational Drug Use: No ED ROS GENERAL - Review of Systems Review Of Systems: See Below Constitutional: Reports: Fever, Chills, Malaise, Fatigue HEENT: Reports: Nose Pain, Rhinitis, Sinus Problem Respiratory: Reports: Pleuritic Chest Pain (from the cough), Cough, Sputum ( dark to light green. frequent "hard" cough) Cardiovascular: Reports: No Symptoms Endocrine: Reports: Other (diabetes controlled with metformin) GI/Abdominal: Reports: No Symptoms : Reports: No Symptoms, Other (denies or breast feeding) Musculoskeletal: Reports: No Symptoms Skin: Reports: No Symptoms Neurological: Reports: No Symptoms Psychiatric: Reports: No Symptoms Hematologic/Lymphatic: Reports: No Symptoms Immunologic: Reports: No Symptoms ED EXAM, GENERAL - Physical Exam Exam: See Below Exam Limited By: No Limitations General Appearance: Alert, WD/WN, No Apparent Distress, Mild Distress (appears ill, frequent harsh cough is noted.), Obese Eye Exam: Bilateral Eye: Normal Inspection Ears: Normal External Exam, Normal Canal, Hearing Grossly Normal, Normal TMs Ear Exam: Bilateral Ear: Auricle Normal, Canal Normal, TM normal Nose: Nasal Tenderness (maxillary and frontal pain with palpation. nares with erythema. discharge present), Nasal Drainage Throat/Mouth: Normal Inspection, Normal Lips, Normal Teeth, Normal Gums, Normal Oropharynx, Normal Voice, No Airway Compromise Head: Atraumatic, Normocephalic Neck: Normal Inspection, Supple, Non-Tender, Full Range of Motion Respiratory/Chest: No Respiratory Distress, Lungs Clear, Normal Breath Sounds, Other (frequent harsh cough is noted. ) Cardiovascular: Regular Rate, Rhythm, No Murmur Extremities: Normal Inspection Neurological: CN II-XII Intact Psychiatric: Normal Affect, Normal Mood Skin Exam: Warm, Dry, Intact, Normal Color, No Rash Lymphatic: No Adenopathy Course - Vital Signs Last Recorded V/S: Last Vital Signs Temp 36.3 C 11/15/18 19:06 Pulse 101 H 11/15/18 19:06 Resp 20 11/15/18 19:06 BP 149/81 H 11/15/18 19:06 Pulse Ox 97 11/15/18 19:06 - Orders/Labs/Meds Orders: discussed with Piper, if this is viral, no amount of antibiotic will cure this, it will need to take time. but if bacteria antibiotic will help, she understands and is willing to try anything to get better. She is going on vacation on Sunday and can't be sick. Departure - Departure Time of Disposition: 19:28 Disposition: Home, Self-Care 01 Condition: Good Clinical Impression: Cough Sinusitis, acute Qualifiers: Sinusitis location: maxillary Recurrence: not specified as recurrent Qualified Code(s): J01.00 - Acute maxillary sinusitis, unspecified - Discharge Information *PRESCRIPTION DRUG MONITORING PROGRAM REVIEWED*: Not Applicable *COPY OF PRESCRIPTION DRUG MONITORING REPORT IN PATIENT RAHUL: Not Applicable Instructions: Cough, Adult, [id number], Sinusitis, Adult, [id number] Referrals: Audrey Tovar RN [Primary Care Provider] - Forms: ED Department Discharge Care Plan Goals: acute Sinusitis with cough -Robitussin AC 10 ml by mouth every 4 to 6 hours as needed for cough -Zithromax 2 tabs today then 1 tab daily x 4 days -continue Tylenol and Motrin as directed for pain or fever rest, push fluids, take medications as prescribed return to Clinic or ER if not improved or symptoms worsen. - Problem List & Annotations (1) Cough SNOMED Code(s): 28169667 Code(s): R05 - COUGH Status: Acute Priority: Medium Current Visit: Yes (2) Sinusitis, acute SNOMED Code(s): 34493161 Code(s): J01.90 - ACUTE SINUSITIS, UNSPECIFIED Status: Acute Priority: Medium Current Visit: Yes Qualifiers: Sinusitis location: maxillary Recurrence: not specified as recurrent Qualified Code(s): J01.00 - Acute maxillary sinusitis, unspecified - Problem List Review Problem List Initiated/Reviewed/Updated: Yes - Assessment/Plan Plan: acute Sinusitis with cough -Robitussin AC 10 ml by mouth every 4 to 6 hours as needed for cough -Zithromax 2 tabs today then 1 tab daily x 4 days -continue Tylenol and Motrin as directed for pain or fever rest, push fluids, take medications as prescribed return to Clinic or ER if not improved or symptoms worsen.
== END 2018-11-15 19:38 | disposition home or self-care (01) ==
LOC: JP.ED 18:48
DX: J01.00 Acute maxillary sinusitis, unspecified (principal); E11.9 Type 2 diabetes mellitus without complications; Z79.84 Long term (current) use of oral hypoglycemic drugs; Z88.1 Allergy status to other antibiotic agents; Z88.0 Allergy status to penicillin
CPT/HCPCS: 99283

== ENCOUNTER 2025-02-03 18:45 | Emergency (ER) | payer MEDICAID ==
[2025-02-03] MEDS: Bacitracin Oint 1 GM U/D Packet TOP ONE (19:36)
== END 2025-02-03 19:49 | disposition home or self-care (01) ==
LOC: JP.ED 18:45
DX: S62.662B Nondisplaced fracture of distal phalanx of right middle finger, initial encounter for open fracture (principal); E11.9 Type 2 diabetes mellitus without complications; E66.9 Obesity, unspecified; Z88.1 Allergy status to other antibiotic agents; Z88.8 Allergy status to other drugs, medicaments and biological substances; Z88.0 Allergy status to penicillin; Z79.899 Other long term (current) drug therapy; Z79.84 Long term (current) use of oral hypoglycemic drugs; Z68.41 Body mass index [BMI] 40.0-44.9, adult; W22.8XXA Striking against or struck by other objects, initial encounter
CPT/HCPCS: 73140-26-F7; 73140-F7; 99283